=== PATIENT | male | born 1985 | race Caucasian/White ===

== ENCOUNTER 2017-01-18 22:50 | Emergency (ER) | payer SELFPAY ==
[~2017-01-18] VITALS: Ht 177.8 cm; Wt 131.5 kg
[2017-01-18 22:56] VITALS: Ht 177.8 cm; Wt 131.5 kg
[2017-01-19] MEDS ORDERED: CLINDAMYCIN 300 MG INJ IM ONE (02:00)
[2017-01-19] MEDS ORDERED: HYDROCODONE/APAP (5/325) TAB PO ONE (02:00)
--- NOTE | 2017-01-19 02:07 | ERD ---
ER Documentation Chief Complaint Date/Time DATE: 01/19/17 TIME: 02:01 Chief Complaint sp bug bite- abscess on the lower abd area HPI This a 31-year-old male who presents to the emergency department today complaining of an abscess and redness on the left side of his abdomen. States it has been there for the past 2 days and states that he thinks it is worse because his belt is rubbing against the area. States he has not taken any medication. Denies any fevers or chills. ROS All systems reviewed and are negative except as per history of present illness. Medications Home Meds Active Scripts Ibuprofen* (Motrin*) 800 Mg Tab, 800 MG PO Q6, #30 TAB Prov:DONELL TO-C 01/19/17 Hydrocodone/Acetaminophen (Dyer 5-325 Tablet) 1 Each Tablet, 1 TAB PO Q6H Y for PAIN, #10 TAB Prov:DONELL TO-C 01/19/17 Cephalexin* (Keflex*) 500 Mg Capsule, 500 MG PO QID for 7 Days, CAP Prov:DONELL TO-C 01/19/17 Sulfamethoxazole/Trimethoprim (Bactrim Ds Tablet) 1 Each Tablet, 1 EACH PO BID for 7 Days, TAB Prov:DONELL OT-C 01/19/17 Allergies Allergies: Coded Allergies: No Known Allergy (Unverified , 01/18/17) PMhx/Soc Medical and Surgical Hx: pt denies Medical Hx, pt denies Surgical Hx Hx Alcohol Use: No Hx Substance Use: Yes (marijuana) Hx Tobacco Use: No Smoking Status: Current every day smoker Physical Exam Vitals Vital Signs Date Time Temp Pulse Resp B/P Pulse Ox O2 Delivery O2 Flow Rate FiO2 01/18/17 22:56 98.3 121 20 146/102 100 Physical Exam Const: Obese, no acute distress Head: Atraumatic Eyes: Normal Conjunctiva ENT: Normal External Ears, Nose and Mouth. Neck: Full range of motion..~ No meningismus. Resp: Clear to auscultation bilaterally Cardio: Regular rate and rhythm, no murmurs Abd: Soft, non tender, non distended. Normal bowel sounds. Localized area of erythema approximately 7 cm left side of abdomen with evidence of small abscess. No purulent drainage. Skin: Localized area of erythema possibly 7 cm left side of abdomen with evidence of small abscess. No purulent drainage. Very small area of fluctuance. Back: No midline or flank tenderness Ext: No cyanosis, or edema Neur: Awake and alert Psych: Normal Mood and Affect Results 24 hrs Current Medications Medications (Trade) Dose Ordered Sig/Adarsh Route PRN Reason Start Time Stop Time Status Last Admin Dose Admin Acetaminophen/ Hydrocodone Bitart (Dyer (5/325)) 1 tab ONCE ONCE PO 01/19/17 02:00 01/19/17 02:01 DC Clindamycin Phosphate (Cleocin) 600 mg ONCE ONCE IM 01/19/17 02:00 01/19/17 02:01 DC Procedures/MDM This a 31-year-old male who presents the emergency department today for a small area of abscess and redness on the left side of his abdomen. On physical exam patient has approximate 7 cm of erythema with very small abscess with very small amount of fluctuance. Patient is afebrile. He is tachycardic however do not feel he requires laboratory work or imaging at this time. Patient symptoms at this time is consistent with abscess and localized cellulitis versus folliculitis. Patient has no abdominal pain. Low suspicion for deep space infection, sepsis or tracking infection. I do not feel the patient would benefit from incision and drainage at this time given that there is only a very small area of fluctuance. Patient was given clindamycin IM here in the emergency department and will be given a prescription for Keflex and Bactrim for home. He was instructed to follow-up in 48 hours for a wound check or return sooner for any worsening of symptoms, spreading of the area or fevers. I have marked the area with a pen. Patient was given Dyer here in the emergency department. I will give him a prescription for short course of Dyer, Motrin for home in addition to the Bactrim and Keflex. At this time the patient is stable for discharge and outpatient management. Patient should follow up with their PCP in the next 1-2 days. They may return to the emergency department sooner for any persistent or worsening of symptoms. Patient understood and agreed with the plan. Departure Diagnosis: Primary Impression: Abscess Additional Impression: Cellulitis Site of cellulitis: trunk Site of cellulitis of trunk: abdominal wall Qualified Code: L03.311 - Cellulitis of abdominal wall Condition: Fair PROUSE,DONELL M. PA-C Jan 19, 2017 02:07
[2017-01-19] MEDS ORDERED: SULF1TAB31 PO (02:09)
[2017-01-19] MEDS ORDERED: CEPH-443 PO (02:10)
[2017-01-19] MEDS ORDERED: IBUP800T25 PO (02:10)
[2017-01-19] MEDS ORDERED: HYDR-906 PO (02:10)
[2017-01-19 03:47] VITALS: BP 132/88; PULSE 115; RESP 16
== END 2017-01-19 03:30 | disposition home or self-care (01) ==
LOC: FTE 22:50
DX: L02.211 Cutaneous abscess of abdominal wall (principal); L03.311 Cellulitis of abdominal wall; F17.210 Nicotine dependence, cigarettes, uncomplicated
CPT/HCPCS: 96372